=== PATIENT | male | born 1975 | race Caucasian/White ===

== ENCOUNTER 2021-01-22 15:03 | Emergency (ER) | payer BC ==
[~2021-01-22] VITALS: Ht 185.4 cm; Wt 77.1 kg
[2021-01-22] MEDS ORDERED: CEPHALEXIN500 MG PO (16:48)
[2021-01-22 16:53] VITALS: BP 134/84
== END 2021-01-22 16:54 | disposition home or self-care (01) ==
LOC: M.ERS 15:03
DX: S60.351A Superficial foreign body of right thumb, initial encounter (principal); W45.8XXA Other foreign body or object entering through skin, initial encounter; Y93.89 Activity, other specified; Y92.89 Other specified places as the place of occurrence of the external cause; Y99.8 Other external cause status